=== PATIENT | male | born 1950 | race Caucasian/White ===

== ENCOUNTER 2017-08-12 03:40 | Outpatient (CLI) | payer MEDICARE, OTHER ==
[~2017-08-12 03:40] MED LIST: ATOR20TA PO; CHOL200035 PO; CLOP75TA35 PO; COU4T PO; DOCU-169 PO; INSU100V36 SQ; LANTUS SQ; LOP25T PO; MAGN400T29 PO; METF500T7 PO; MULT-1085 PO; OLME1TAB28 PO; OMEP-84 PO; PREG75CA30 PO; VIT B12 PO
== END 2017-08-12 23:59 | disposition home or self-care (01) ==
LOC: DIABETIC 03:40
PROVIDERS: ATTEND Specialist
DX: E11.65 Type 2 diabetes mellitus with hyperglycemia (principal); I10 Essential (primary) hypertension; F17.200 Nicotine dependence, unspecified, uncomplicated
CPT/HCPCS: G0108

== ENCOUNTER 2017-11-10 04:55 | Outpatient (CLI) | payer MEDICARE, OTHER | END 2017-11-10 23:59 | disposition home or self-care (01) | LOC: DIABETIC 04:55 | PROVIDERS: ATTEND Specialist | DX: E11.65 Type 2 diabetes mellitus with hyperglycemia (principal); I10 Essential (primary) hypertension; Z87.891 Personal history of nicotine dependence | CPT/HCPCS: G0108 ==

== ENCOUNTER 2018-07-06 06:55 | Emergency (ER) | payer MEDICARE, OTHER ==
[~2018-07-06] VITALS: Ht 177.8 cm; Wt 127.2 kg
[2018-07-06] MEDS ORDERED: Dextrose 10%-water IV solution 1,000 ML IV ONE (07:04)
[2018-07-06] MEDS ORDERED: dextrose 5%-water 1,000 ML IV ONE (07:35)
[2018-07-06 08:30] LABS: BASOPHILS # (AUTO) 0.1 X10'3 (0-0.2); BASOPHILS % (AUTO) 0.7 % (0-1); EOSINOPHILS # (AUTO) 0.1 X10'3 (0-0.9); EOSINOPHILS % (AUTO) 1.4 % (0-6); HEMATOCRIT 44.9 % (42.0-52.0); LYMPHOCYTES # (AUTO) 0.6 X10'3 (1.1-4.8); LYMPHOCYTES % (AUTO) 6.1 % (21-51); MEAN CORPUSCULAR HEMOGLOBIN 29.6 PG (27.0-31.0); MEAN CORPUSCULAR HGB CONC 33.4 % (33.0-36.5); MEAN CORPUSCULAR VOLUME 88.7 FL (78-98); MEAN PLATELET VOLUME 8.9 FL (7.4-10.4); MONOCYTES # (AUTO) 0.3 X10'3 (0-0.9); MONOCYTES % (AUTO) 2.5 % (2-12); NEUTROPHILS # (AUTO) 9.3 X10'3 (1.8-7.7); NEUTROPHILS % (AUTO) 89.3 % (42-75); PLATELET COUNT 206 X10'3 (140-440); RED BLOOD COUNT 5.07 X10'6 (4.70-6.10); RED CELL DISTRIBUTION WIDTH 14.1 % (11.5-14.5); WHITE BLOOD COUNT 10.5 X10'3 (4.5-11.0)
[2018-07-06 08:46] LABS: ALANINE AMINOTRANSFERASE 19 U/L (12-78); ALBUMIN 3.6 G/DL (3.4-5.0); ALBUMIN/GLOBULIN RATIO 0.7 (1.1-1.5); ALKALINE PHOSPHATASE 130 IU/L (46-116); ANION GAP 10 (8-16); ASPARTATE AMINO TRANSFERASE 18 U/L (10-37); BILIRUBIN,TOTAL 0.5 MG/DL (0.1-1.0); BLOOD UREA NITROGEN 29 MG/DL (7-18); BUN/CREATININE RATIO 20.6 (5.4-32.0); CHLORIDE 100 MMOL/L (99-107); CREATININE 1.41 MG/DL (0.60-1.10); GLUCOSE 86 MG/DL (70-104); POTASSIUM 3.9 MMOL/L (3.5-5.1); SODIUM 139 MMOL/L (135-145); TOTAL CARBON DIOXIDE 29.5 MMOL/L (24-32); TOTAL PROTEIN 8.9 G/DL (6.4-8.2); eGFR 50 ML/MIN
[2018-07-06 10:08] VITALS: BP 170/81
== END 2018-07-06 12:27 | disposition home or self-care (01) ==
LOC: ER 06:55
DX: E11.649 Type 2 diabetes mellitus with hypoglycemia without coma (principal); I10 Essential (primary) hypertension; Z90.49 Acquired absence of other specified parts of digestive tract; Z98.890 Other specified postprocedural states; Z89.512 Acquired absence of left leg below knee; Z88.4 Allergy status to anesthetic agent; Z79.899 Other long term (current) drug therapy; Z79.4 Long term (current) use of insulin; Z79.01 Long term (current) use of anticoagulants
CPT/HCPCS: 36415; 80053; 82948; 85025; 96360; 96361; 99284; J7070

== ENCOUNTER 2018-08-12 03:29 | Outpatient (CLI) | payer MEDICARE, OTHER | END 2018-08-12 23:59 | disposition home or self-care (01) | LOC: DIABETIC 03:29 | PROVIDERS: ATTEND Specialist | DX: E11.65 Type 2 diabetes mellitus with hyperglycemia (principal); I10 Essential (primary) hypertension; Z79.4 Long term (current) use of insulin; Z79.84 Long term (current) use of oral hypoglycemic drugs; Z88.1 Allergy status to other antibiotic agents; Z87.891 Personal history of nicotine dependence | CPT/HCPCS: G0108 ==

== ENCOUNTER 2018-11-17 01:27 | Outpatient (CLI) | payer MEDICARE, OTHER | END 2018-11-17 23:59 | disposition home or self-care (01) | LOC: DIABETIC 01:27 | PROVIDERS: ATTEND Specialist | DX: E11.65 Type 2 diabetes mellitus with hyperglycemia (principal); Z79.4 Long term (current) use of insulin; Z79.84 Long term (current) use of oral hypoglycemic drugs; Z79.899 Other long term (current) drug therapy; Z88.8 Allergy status to other drugs, medicaments and biological substances | CPT/HCPCS: G0108 ==

== ENCOUNTER 2019-04-14 03:16 | Outpatient (CLI) | payer MEDICARE, OTHER ==
[~2019-04-14 03:16] MED LIST changes: +METF500T20 PO; -METF500T7 PO
== END 2019-04-14 23:59 | disposition home or self-care (01) ==
LOC: DIABETIC 03:16
PROVIDERS: ATTEND Specialist
DX: E11.9 Type 2 diabetes mellitus without complications (principal)
CPT/HCPCS: G0108

== ENCOUNTER 2019-08-22 04:37 | Outpatient (CLI) | payer MEDICARE, OTHER | END 2019-08-22 23:59 | disposition home or self-care (01) | LOC: DIABETIC 04:37 | PROVIDERS: ATTEND Specialist | DX: E11.65 Type 2 diabetes mellitus with hyperglycemia (principal); Z79.84 Long term (current) use of oral hypoglycemic drugs | CPT/HCPCS: G0108 ==

== ENCOUNTER 2020-03-10 16:19 | Emergency (ER) | payer MEDICARE, OTHER ==
[~2020-03-10] VITALS: Ht 177.8 cm; Wt 136.4 kg
[~2020-03-10 16:19] MED LIST changes: +METF-900 PO; -METF500T20 PO
[2020-03-10 16:28] VITALS: BP 164/67
[2020-03-10] MEDS ORDERED: insulin Lispro (HumaLOG) vial - multi-dose SQ STA (16:43)
[2020-03-10] MEDS ORDERED: INSU100I45 SQ (16:48)
== END 2020-03-10 17:10 | disposition home or self-care (01) ==
LOC: ER 16:19
DX: E11.9 Type 2 diabetes mellitus without complications (principal); F32.9 Major depressive disorder, single episode, unspecified; I10 Essential (primary) hypertension; Z76.0 Encounter for issue of repeat prescription; Z00.00 Encounter for general adult medical examination without abnormal findings; Z90.89 Acquired absence of other organs; Z90.49 Acquired absence of other specified parts of digestive tract; Z98.890 Other specified postprocedural states; Z79.4 Long term (current) use of insulin; Z79.01 Long term (current) use of anticoagulants; Z79.899 Other long term (current) drug therapy
CPT/HCPCS: 82948; 99282; J1815; 99281

== ENCOUNTER 2020-05-19 23:00 | Emergency (ER) | payer OTHER, MEDICARE ==
[~2020-05-19] VITALS: Ht 177.8 cm; Wt 134.6 kg
[~2020-05-19 23:00] MED LIST changes: +INSU100I45 SQ
[2020-05-19 23:57] LABS: ANION GAP 9 (8-16); BLOOD UREA NITROGEN 22 MG/DL (7-18); BUN/CREATININE RATIO 17.1 (5.4-32.0); CALCIUM 8.3 MG/DL (8.5-10.1); CHLORIDE 101 MMOL/L (99-107); CREATININE 1.29 MG/DL (0.60-1.10); GLUCOSE 294 MG/DL (70-104); POTASSIUM 4.3 MMOL/L (3.5-5.1); SODIUM 137 MMOL/L (135-145); TOTAL CARBON DIOXIDE 27.1 MMOL/L (24-32); eGFR 55 ML/MIN
[2020-05-20 00:03] LABS: BASOPHILS # (AUTO) 0.1 X10'3 (0-0.2); EOSINOPHILS # (AUTO) 0.3 X10'3 (0-0.9); EOSINOPHILS % (AUTO) 3.3 % (0-6); HEMOGLOBIN 13.3 g/dl (14.0-17.9); LYMPHOCYTES # (AUTO) 0.9 X10'3 (1.1-4.8); LYMPHOCYTES % (AUTO) 9.7 % (21-51); MEAN CORPUSCULAR HEMOGLOBIN 29.7 PG (27.0-31.0); MEAN CORPUSCULAR HGB CONC 33.2 g/dL (33.0-36.5); MEAN CORPUSCULAR VOLUME 89.3 FL (78-98); MEAN PLATELET VOLUME 9.5 FL (7.4-10.4); MONOCYTES # (AUTO) 0.5 X10'3 (0-0.9); MONOCYTES % (AUTO) 5.6 % (2-12); NEUTROPHILS # (AUTO) 7.3 X10'3 (1.8-7.7); NEUTROPHILS % (AUTO) 80.4 % (42-75); PLATELET COUNT 165 X10'3 (140-440); RED BLOOD COUNT 4.48 X10'6 (4.70-6.10); RED CELL DISTRIBUTION WIDTH 14.8 % (11.5-14.5)
[2020-05-20] MEDS ORDERED: acetaminophen 325mg tablet PO ONE (01:15)
[2020-05-20 02:15] LABS: CLARITY,URINE CLEAR (Clear); COLOR,URINE YELLOW (Yellow); GLUCOSE, URINE 250 mg/dl (Neg); KETONES,URINE NEGATIVE (Neg); LEUKOCYTE ESTERASE ,URINE NEGATIVE (Neg); NITRITES, URINE NEGATIVE (Neg); OCCULT BLOOD,URINE NEGATIVE (Neg); PROTEIN,URINE 30 mg/dl (Neg); UROBILINOGEN,URINE 0.2 E.U/dL (0.2-1.0)
[2020-05-20 02:20] LABS: UA COLLECTION TYPE NON-SPECIFIED
[2020-05-20 02:21] LABS: BACTERIA,URINE NONE SEEN /HPF (Neg); RBC,URINE NONE SEEN /HPF (0-2); SQUAMOUS EPITHELIAL CELL,UR FEW /LPF (FEW); WBC,URINE NONE SEEN /HPF (0-4)
--- NOTE | 2020-05-20 02:35 | NUR ---
pt ambulated with crutches approx [address]. Pt stated pain of 10/10 when putting pressure on stump. Pt ambulated unassisted, but slowly and laboriously.
[2020-05-20 03:01] VITALS: BP 158/63
== END 2020-05-20 03:07 | disposition home or self-care (01) ==
LOC: ER 23:00
DX: M79.605 Pain in left leg (principal); R55 Syncope and collapse; H53.8 Other visual disturbances; R11.0 Nausea; R53.1 Weakness; R51.9 Headache, unspecified; I10 Essential (primary) hypertension; E11.9 Type 2 diabetes mellitus without complications; F32.9 Major depressive disorder, single episode, unspecified; Z90.89 Acquired absence of other organs; Z98.890 Other specified postprocedural states; Z88.8 Allergy status to other drugs, medicaments and biological substances; Z79.4 Long term (current) use of insulin; Z79.899 Other long term (current) drug therapy
CPT/HCPCS: 36415; 70450; 73590; 80048; 81001; 85025; 85610; 93005; 99285

== ENCOUNTER 2022-02-15 00:27 | Emergency (ER) | payer OTHER, MEDICARE ==
[~2022-02-15] VITALS: Ht 177.8 cm; Wt 136.0 kg
[~2022-02-15 00:27] MED LIST changes: +CLOP75TA34 PO; -CLOP75TA35 PO
[2022-02-15 01:33] LABS: ALANINE AMINOTRANSFERASE 19 U/L (12-78); ALBUMIN/GLOBULIN RATIO 0.7 (1.1-1.5); ALKALINE PHOSPHATASE 110 IU/L (46-116); ANION GAP 10 (8-16); ASPARTATE AMINO TRANSFERASE 18 U/L (10-37); BILIRUBIN,TOTAL 0.5 MG/DL (0.1-1.0); BLOOD UREA NITROGEN 9 MG/DL (7-18); BUN/CREATININE RATIO 9.3 (5.4-32.0); CALCIUM 8.5 MG/DL (8.5-10.1); CHLORIDE 104 MMOL/L (99-107); CREATININE 0.97 MG/DL (0.60-1.10); POTASSIUM 3.1 MMOL/L (3.5-5.1); SODIUM 143 MMOL/L (135-145); TOTAL CARBON DIOXIDE 29.2 MMOL/L (24-32); TOTAL PROTEIN 7.5 G/DL (6.4-8.2); eGFR 76 ML/MIN
[2022-02-15 01:39] LABS: GLUCOSE 38 MG/DL (70-104)
[2022-02-15 01:40] LABS: BASOPHILS # (AUTO) 0.1 X10'3 (0-0.2); BASOPHILS % (AUTO) 0.9 % (0-1); EOSINOPHILS # (AUTO) 0.1 X10'3 (0-0.9); EOSINOPHILS % (AUTO) 1.5 % (0-6); HEMATOCRIT 38.7 % (42.0-52.0); HEMOGLOBIN 13.1 g/dl (14.0-17.9); LYMPHOCYTES # (AUTO) 0.9 X10'3 (1.1-4.8); MEAN CORPUSCULAR HEMOGLOBIN 28.9 PG (27.0-31.0); MEAN CORPUSCULAR HGB CONC 33.8 g/dL (33.0-36.5); MEAN CORPUSCULAR VOLUME 85.7 FL (78-98); MEAN PLATELET VOLUME 9.5 FL (7.4-10.4); MONOCYTES # (AUTO) 0.6 X10'3 (0-0.9); MONOCYTES % (AUTO) 6.8 % (2-12); NEUTROPHILS # (AUTO) 7.3 X10'3 (1.8-7.7); NEUTROPHILS % (AUTO) 80.8 % (42-75); PLATELET COUNT 198 X10'3 (140-440); RED BLOOD COUNT 4.52 X10'6 (4.70-6.10); RED CELL DISTRIBUTION WIDTH 15.1 % (11.5-14.5)
[2022-02-15 03:41] LABS: D-DIMER 0.89 MG/L FEU (0-0.50)
--- NOTE | 2022-02-15 05:04 | NUR ---
PT SBP A 227. NOTIFIED. N/O FOR PT TO TAKE OWN METROPOLOL. MED TAKEN. WILL REPEAT B/P IN 1 HOUR
[2022-02-15 06:00] VITALS: BP 166/67
== END 2022-02-15 06:08 | disposition home or self-care (01) ==
LOC: ER 00:28
DX: R22.42 Localized swelling, mass and lump, left lower limb (principal); I10 Essential (primary) hypertension; E11.9 Type 2 diabetes mellitus without complications; Z86.79 Personal history of other diseases of the circulatory system; Z90.49 Acquired absence of other specified parts of digestive tract; Z89.512 Acquired absence of left leg below knee; Z79.4 Long term (current) use of insulin; Z79.899 Other long term (current) drug therapy; Z88.8 Allergy status to other drugs, medicaments and biological substances; Z79.01 Long term (current) use of anticoagulants
CPT/HCPCS: 36415; 71045; 73590; 80053; 82948; 83880; 85025; 85379; 93005; 93971; 99285

== ENCOUNTER 2024-11-28 09:08 | Emergency (ER) | payer OTHER, MEDICARE ==
[~2024-11-28] VITALS: Ht 177.8 cm; Wt 135.0 kg
[~2024-11-28 09:08] MED LIST changes: -INSU100I45 SQ; +INSU100I61 SQ
[2024-11-28 09:09] VITALS: TEMP 97.1
[2024-11-28 09:32] LABS: BASOPHILS % (AUTO) 0.5 % (0-1); EOSINOPHILS # (AUTO) 0.2 X10'3 (0-0.9); EOSINOPHILS % (AUTO) 2.5 % (0-6); HEMATOCRIT 40.1 % (42.0-52.0); HEMOGLOBIN 13.5 g/dl (14.0-17.9); LYMPHOCYTES # (AUTO) 0.7 X10'3 (1.1-4.8); LYMPHOCYTES % (AUTO) 7.3 % (21-51); MEAN CORPUSCULAR HGB CONC 33.5 g/dL (33.0-36.5); MEAN CORPUSCULAR VOLUME 86.5 FL (78-98); MEAN PLATELET VOLUME 8.9 FL (7.4-10.4); MONOCYTES # (AUTO) 0.5 X10'3 (0-0.9); NEUTROPHILS # (AUTO) 7.6 X10'3 (1.8-7.7); NEUTROPHILS % (AUTO) 84.7 % (42-75); PLATELET COUNT 173 X10'3 (140-440); RED BLOOD COUNT 4.64 X10'6 (4.70-6.10); RED CELL DISTRIBUTION WIDTH 15.3 % (11.5-14.5)
--- NOTE | 2024-11-28 09:40 | Physician Documentation ---
History of Present Illness ~ Chief Complaint: Mechanical Fall Stated Complaint: FALL Time Seen by MD: 09:35 Primary Medical Doctor: KELLY Mode of Arrival: EMS HPI This is a 74-year-old gentleman who is a known diabetic comes in for evaluation of potential injuries sustained a ground level fall. He did strike his head. Denies loss of consciousness. He states that I went into diabetic coma, I guess". He states that he took his usual medication, and despite of that exp erienced an episode of hypoglycemia. No particular palliating or aggravating factors. Complains of a headache. Denies any chest pain, difficulty breathing, difficulty with the urination, denies any fever. Denies any other health issues. Denies any concerns for tobacco, alcohol or illicit substances use Tetanus within 5 Years?: Yes Medication Reconciliation Allergies: Coded Allergies: Procaine HCl (Unverified Allergy, Unknown, LIDOCAINE OKAY, 11/28/24) Scheduled Atorvastatin Calcium* (Lipitor*), 20 MG PO HS, (Reported) Cholecalciferol (Vitamin D3) (Vitamin D3), 1,000 UNIT PO DAILY, (Reported) Clopidogrel Bisulfate (Clopidogrel), 75 MG PO DAILY, (Reported) Insulin Glargine,Hum.rec.anlog* (Lantus*), 70 UNITS SQ HS, (Reported) Insulin Lispro (Insulin Lispro Kwikpen U-100), 40 UNITS SQ TID Insulin Lispro* (Humalog*), 40 UNITS SQ BID, (Reported) Magnesium Oxide (Magox 400), 800 MG PO HS Metformin Hcl* (Metformin ER*), 1,000 MG PO BID, (Reported) Metoprolol Tartrate* (Lopressor*), 50 MG PO BID, (Reported) Multivitamin (Multi Vitamin Daily), 1 EACH PO DAILY, (Reported) Olmesartan Med/Amlodipine/Hctz (Tribenzor 40-5-25 Mg Tablet), 1 EACH PO DAILY, (Reported) Omeprazole* (Prilosec*), 20 MG PO DAILY, (Reported) Pregabalin* (Lyrica*), 75 MG PO BID, (Reported) Warfarin Sodium* (Coumadin*), 4 MG PO DAILY, (Reported) [Vit B12], 1,000 MG PO DAILY, (Reported) Scheduled PRN Docusate Sodium (Dulcolax Stool Softener), 1 CAP PO DAILY PRN for constipation, (Reported) Past Medical History Past Medical History: Hypertension, Vascular Disease, Diabetes, Depression Past Surgical History: appendectomy, orthopedic surgeries, tonsillectomy, other Other Past Surgical History: Left BKA Patient History: (CHF) Congestive heart failure FATHER, Onset:Unknown MOTHER, Onset:Unknown (DM Type 2) Diabetes mellitus type 2 FATHER, Onset:Unknown MOTHER, Onset:60 years & older ([place]) Myocardial infarction half brother, Onset:Unknown (PVD) Peripheral vascular disease FATHER, Onset:Unknown Asthma brother, Onset:Childhood Cardiac arrest FATHER, Onset:Unknown Alcohol Use: None Drug Use: none Lives with: Family Lives In: Home Review of Systems ROS 10 point review of systems was performed and unless noted above in HPI is negative for acute process/complaint. Physical Exam Vital Signs: Temperature: 97.1, Source: Temporal, Heart Rate: 66, Respiratory Rate: 20, BP: 83/65, Pulse Oximetry: 95, Weight: 135.000 Oxygen Flow Rate: 0 Physical Exam GENERAL: Awake, alert, oriented, GCS 15, no apparent distress, non-toxic appearing, answers questions, follows commands appropriately. HEENT: Atraumatic, normocephalic, pupils equal, extraocular muscles intact, sclerae anicteric, mucus membranes moist, oropharynx is clear, no stridor. NECK: supple, full active range of motion, trachea midline, no thyromegaly, no lymphadenopathy, no JVD. CARDIOVASCULAR: regular rate/rhythm, no murmurs/gallops/rubs, Pulses are 2+ in all extremities and symmetric. Capillary refill less than 2 seconds. PULMONARY: Nonlabored, good air movement ,no respiratory distress, speaking in full sentences, clear to auscultation bilaterally, no wheezing, no ronchi, no rales, no accessory muscle use. GASTROINTESTINAL: Soft, non-tender, non-distended, normal active bowel sounds, no organomegaly, no pulsatile masses, no CVA tenderness. NEUROLOGIC: Lucid with normal mental status. Normal facial symmetry. Moves all extremities symmetrically and with purpose. No truncal ataxia. Speech is fluid without evidence of dysarthria or aphasia, no focal deficits appreciated. MUSCULOSKELETAL: There is full range of motion of all extremities. There is no joint pain or joint swelling or joint erythema. There is no muscle pain or tenderness or swelling. EXTREMITIES: warm, well-perfused, no cyanosis, no clubbing, no edema, no acute deformities. Skin: warm, dry, no rashes or lesions, no jaundice, no petechiae orpurpura. No ecchymosis. PSYCHIATRIC: Normal affect, normal insight, normal concentration. Focused exam: [] Progress Results/Orders Results/Orders Orders - PILY MCPHERSON DO Chest,Single View (11/28/24 09:33) Monitor (11/28/24 09:17) Saline Lock (11/28/24 09:17) Oxygen (11/28/24 09:17) Hs Troponin I W Calculations (11/28/24 11:17) Hs Troponin I W Calculations (11/28/24 12:17) Ct Head (11/28/24 09:50) Ct Cervical Spine (11/28/24 09:50) Completed Orders - PILY MCPHERSON DO Chest,Single View (11/28/24 09:33) Cbc/Diff (11/28/24 09:17) Electrocardiogram (11/28/24 09:17) PTT (11/28/24 09:31) Pt Inr (11/28/24 09:31) Urinalysis, Cult If Indicated (11/28/24 09:35) Ct Head (11/28/24 09:50) Ct Cervical Spine (11/28/24 09:50) Hs Troponin I W Calculations (11/28/24 09:37) CMP (11/28/24 09:37) PBNP (11/28/24 09:37) Vital Signs 11/28/24 11/28/24 11/28/24 11/28/24 09:09 09:20 09:24 09:32 Temp 97.1 Pulse 64 66 Resp 18 18 20 B/P (MAP) 152/60 83/65 (71) Pulse Ox 98 95 O2 Delivery Room Air* O2 Flow Rate 0 FiO2 N/A 11/28/24 11:00 Pulse 56 Resp 18 B/P (MAP) 182/68 (106) Pulse Ox 98 O2 Flow Rate 0 Laboratory Tests Test 11/28/24 09:18 11/28/24 09:21 11/28/24 10:17 11/28/24 10:19 Glucometer 59 L 92 White Blood Count 9.0 Red Blood Count 4.64 L Hemoglobin 13.5 L Hematocrit 40.1 L Mean Corpuscular Volume 86.5 Mean Corpuscular Hemoglobin 29.0 Mean Corpuscular Hemoglobin Concent 33.5 Red Cell Distribution Width 15.3 H Platelet Count 173 Mean Platelet Volume 8.9 Neutrophils (%) (Auto) 84.7 H Lymphocytes (%) (Auto) 7.3 L Monocytes (%) (Auto) 5.0 Eosinophils (%) (Auto) 2.5 Basophils (%) (Auto) 0.5 Neutrophils # (Auto) 7.6 Lymphocytes # (Auto) 0.7 L Monocytes # (Auto) 0.5 Eosinophils # (Auto) 0.2 Basophils # (Auto) 0.0 CBC Comment Chemistry Comments Prothrombin Time 13.0 H INR International Normalized Ratio 1.3 Activated Partial Thromboplast Time 30 Coagulation Comments Sodium Level 139 Potassium Level 4.2 Chloride Level 102 Carbon Dioxide Level 30.8 Anion Gap 6 L Blood Urea Nitrogen 16 Creatinine 0.94 Estimated GFR/1.73 m2 78 BUN/Creatinine Ratio 17.0 Glucose Level 100 Calcium Level 8.7 Total Bilirubin 0.7 Aspartate Amino Transf (AST/SGOT) 13 Alanine Aminotransferase (ALT/SGPT) 20 Alkaline Phosphatase 110 Troponin I High Sensitivity 15 Pro-B-Type Natriuretic Peptide 66 Total Protein 7.7 Albumin 3.3 L Globulin 4.4 H Albumin/Globulin Ratio 0.8 L Test 11/28/24 11:19 11/28/24 11:54 11/28/24 12:15 Urine Specimen Description Voided Urine Color Yellow Urine Clarity Clear Urine pH 6.5 Urine Specific [place] 1.015 Urine Protein Negative Urine Glucose (UA) Negative Urine Ketones Negative Urine Occult Blood Negative Urine Nitrite Negative Urine Bilirubin Negative Urine Urobilinogen 2.0 H Urine Leukocyte Esterase Negative Urine Culture Indicated Not ind Volume Urine Centrifuged 10 ml Urine Comment Glucometer 122 H Medical Decision Making Findings Facility Status: ED Holds, [facility] process The plan was discussed with the patient, who demonstrates clear understanding of the plan and is in agreement with the plan unless otherwise noted in the chart. All questions have been answered, all concerns were addressed unless otherwise documented. I was available throughout their ED stay for frequent reassessment and questions. Differential Diagnoses (considered and possible or likely): [Hypoglycemia, electrolyte derangement, dehydration, less likely ACS, closed head injury, concussion, subdural, subarachnoid, cervical spine fracture or subluxation] ??Differential Diagnoses (considered and unlikely, not requiring evaluation currently): [Unlikely solid organ injury with intrathoracic injury.] MDM Data Please see [facility] for the following: Independent Historians and external Records Review. Historian: [Patient] Independent Historians: ?[EMS] Medication Management: [Reviewed medication list] Social History and determinants: [Reviewed] Please see the body of the note for the following: Any independent interpretations of ECG, imaging studies. All vitals signs/haemodynamics, ordered tests were independently reviewed and interpreted by myself. Nursing triage complaint and vitals reviewed, additional nursing notes were reviewed as available and I agree unless otherwise noted or documented in contradiction in the chart Vital Signs: Independently reviewed Labs: Independently interpreted Imaging: Independently interpreted Old Medical Records: Independently reviewed, see [facility] for relevant summary and information Pulse Oximetry: [100%] interpreted as [normal on room air] by me [Reception Clerk: [Regular Rate, Regular rhythm, no ectopy, NSR] reviewed and interpreted by me] Additionally notably showing: [Hematologic workup is essentially unremarkable. No critical anemia, normal renal function, no significant electrolyte abnormality. Imaging shows no acute injury. Initially hypoglycemic, maintain his glucose.] UA nondiagnostic criteria. Tests considered but not ordered include: [Not applicable] Social Determinants of Health Impact: Patient was evaluated in [facility], or [facility] [place] access to healthcare due to below par ratio of patient to medical providers. [] Comorbid Conditions Impacting Present Evaluation and Care/Treatment: [Diabetes] Management Discussions with other Healthcare Providers: [] Treatment and Disposition Medication Management (Given or considered): []. See EMR for details Consideration for Hospitalization/Escalation/Deescalation of Care: Admission for observation has been considered, [however the patient is able to tolerate p.o., their symptoms are controlled, they are able to rely on oral medications, and their chief complaint/diagnosis can be managed on outpatient basis.] ?ED Course:?[Patient initially hypoglycemic. Received D10 from EMS with recovery of mental status. Hypoglycemic here and was provided with juice.] Most likely hypoglycemia caused by insufficient oral intake. ?Shared decision making:?[Patient is hemodynamically stable for discharge home with follow with their primary care provider. [ ] Specific and cautious return precautions provided and discussed with full understanding. Any incidental fi ndings were also discussed and follow up recommendations given. [] All questions answered. Patient/family were able to verbalize back return precautions. Patient/family agree to plan. Copies of imaging and laboratory studies were provided.] Code status:?FULL Please see the full Electronic Medical Record for full details of nursing documentation, medications list, other records of complete past medical history and conditions, vital signs, laboratory studies, and any radiologic study interpretations by radiologists. Portions of this note were completed using pbsi dictation software and as a result there may exist minor errors in spelling. I have reviewed elements of past family and social history and agree as included in note. Departure Disposition: HOME / SELF CARE / HOMELESS Impression: Primary Impression: Syncope Additional Impressions: Ground-level fall Acute traumatic pain Hypoglycemia Closed head injury Condition: Improved Discharge Instructions: Hypoglycemia Referrals: NO PRIMARY CARE PROVIDER (PCP) Education Educated: Patient Educated regarding: diagnosis, treatment, prognosis, need for follow up Signature Scribe Signature: No scribe Attestation: This note accurately reflects clinical decisions, work performed by myself, DO [place] NICHOLAS M DO November 28, 2024 09:40
--- NOTE | 2024-11-28 09:43 | RADIOLOGY REPORT ---
CHEST RADIOGRAPH Indication: CP Technique: Single frontal view of the chest was obtained COMPARISON: None FINDINGS: Lines and Tubes: None Lungs: Clear Pleura: No effusion. No pneumothorax. Cardiomediastinal contours: Cardiomegaly Bones: Unremarkable IMPRESSION: No acute disease.
--- NOTE | 2024-11-28 09:53 | ELECTROCARDIOGRAPH REPORT ---
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 Larry Conner Please click the below link to view image of tracing.
--- NOTE | 2024-11-28 10:33 | RADIOLOGY REPORT ---
Procedure: CT CT CERVICAL SPINE 11/28/2024 09:57 AM Indication: Fall with head strike Comparison Study: None Technique: Axial images were obtained and reformatted in coronal and sagittal planes. All CT scans at this medical facility are performed using dose modulation techniques as appropriate t o a performed exam including the following: Automated exposure control was utilized; adjustment of th e MA and/or KV according to patient size; and use of iterative reconstruction technique. CT Dose: CTDI volume is 28 mGy. Dose-length product is 745 mGy*cm FINDINGS: Bones: The cervical vertebrae are normal in height. Normal alignment of the vertebrae. Lateral camden s C1 and C2 are well aligned. The posterior facet joints are well aligned. Reduction disc height C5-C 7 levels. Discogenic endplate changes at several levels are seen. The posterior facet joints show m ild degenerative changes. Visualized upper thoracic spine show mild compression deformities of severa l vertebrae including T1-T4. Soft tissues: Paraspinal and prevertebral soft tissues are within normal limits. Other: Atherosclerotic calcification of the bilateral carotid bulbs noted. IMPRESSION: 1. Straightening of normal lordosis that could be positional, reflect muscle spasm or pain. Correlate clinically. 2. No acute osseous abnormality of the cervical spine. 3. Age-indeterminate mild compression deformities of several upper thoracic vertebrae. No prior studi es available for comparison. 4. Multilevel degenerative disc disease.
--- NOTE | 2024-11-28 10:36 | RADIOLOGY REPORT ---
EXAM: CT CT HEAD HISTORY: Fall with head strike COMPARISON: CT HEAD on DOS: 05/19/20 TECHNIQUE: Axial images were obtained and reformatted in coronal and sagittal planes. All CT scans at this medical facility are performed using dose modulation techniques as appropriate to a performed e xam including the following: Automated exposure control was utilized; adjustment of the MA and/or KV according to patient size; and use of iterative reconstruction technique. CT Dose: CTDI volume is 72 mGy. Dose-length product is 1248 mGy*cm FINDINGS: Supratentorial Region: No evidence for large acute territorial ischemia. No intracranial hemorrhage is noted. An old lacunar infarct noted in the right caudate head. Posterior Fossa: No acute abnormality. Brainstem: Unremarkable. Sellar/Suprasellar Region: Unremarkable. Ventricles, Cisterns, Sulci: Age-appropriate. Orbits: Unremarkable. Paranasal Sinuses: Unremarkable. Mastoid Air Cells: Unremarkable. Vasculature: Unremarkable. Bones/Soft Tissues: No acute abnormality. Other: None. IMPRESSION: 1. No acute intracranial abnormality.
[2024-11-28 10:38] LABS: APTT 30 SECONDS (22-32); INR 1.3 INR
[2024-11-28 10:40] LABS: ALANINE AMINOTRANSFERASE 20 U/L (12-78); ALBUMIN 3.3 G/DL (3.4-5.0); ALBUMIN/GLOBULIN RATIO 0.8 (1.1-1.5); ALKALINE PHOSPHATASE 110 IU/L (46-116); ANION GAP 6 (8-16); ASPARTATE AMINO TRANSFERASE 13 U/L (10-37); BILIRUBIN,TOTAL 0.7 MG/DL (0.1-1.0); BLOOD UREA NITROGEN 16 MG/DL (7-18); CALCIUM 8.7 MG/DL (8.5-10.1); CHLORIDE 102 MMOL/L (99-107); CREATININE 0.94 MG/DL (0.60-1.10); GLUCOSE 100 MG/DL (70-104); POTASSIUM 4.2 MMOL/L (3.5-5.1); SODIUM 139 MMOL/L (135-145); TOTAL CARBON DIOXIDE 30.8 MMOL/L (24-32); TOTAL PROTEIN 7.7 G/DL (6.4-8.2); eCRCL 70 ML/MIN; eGFR 78 ML/MIN
[2024-11-28 10:47] LABS: PRO BRAIN NATRIURETIC PEPTIDE 66 PG/ML (0-450)
[2024-11-28 11:52] LABS: BILIRUBIN,URINE NEGATIVE (Neg); CLARITY,URINE CLEAR (Clear); COLOR,URINE YELLOW (Yellow); GLUCOSE, URINE NEGATIVE (Neg); KETONES,URINE NEGATIVE (Neg); LEUKOCYTE ESTERASE ,URINE NEGATIVE (Neg); NITRITES, URINE NEGATIVE (Neg); OCCULT BLOOD,URINE NEGATIVE (Neg); PH,URINE 6.5 (4.8-8.0); PROTEIN,URINE NEGATIVE (Neg)
[2024-11-28 12:03] LABS: UA COLLECTION TYPE VOIDED
[2024-11-28] MEDS ORDERED: morphine 4 MG/ML inj SYRINge IV ONE (12:35)
[2024-11-28 12:45] VITALS: BP 161/82
[2024-11-28 14:10] VITALS: PULSE 77; RESP 18; O2SAT 100
== END 2024-11-28 14:13 | disposition home or self-care (01) ==
LOC: ER 09:08
DX: E11.649 Type 2 diabetes mellitus with hypoglycemia without coma (principal); S09.90XA Unspecified injury of head, initial encounter; E11.51 Type 2 diabetes mellitus with diabetic peripheral angiopathy without gangrene; I11.0 Hypertensive heart disease with heart failure; I50.9 Heart failure, unspecified; F32.A Depression, unspecified; Z88.8 Allergy status to other drugs, medicaments and biological substances; Z89.512 Acquired absence of left leg below knee; Z90.49 Acquired absence of other specified parts of digestive tract; Z90.89 Acquired absence of other organs; W18.30XA Fall on same level, unspecified, initial encounter; Y93.89 Activity, other specified; Y92.89 Other specified places as the place of occurrence of the external cause; Y99.8 Other external cause status
CPT/HCPCS: 36415; 70450; 71045; 72125; 80053; 81003; 82948; 83880; 84484; 85025; 85610; 85730; 93005; 99285